=== PATIENT | female | born 1955 | race Caucasian/White ===

== ENCOUNTER 2022-02-03 07:24 | Emergency (ER) | payer SELFPAY ==
[2022-02-03 08:11] VITALS: BP 143/72; PULSE 61; TEMP 97.6; BMI 38.2
[2022-02-03] MEDS ORDERED: ACETAMINOPHEN 1000 MG/100 ML BAG IVPB ONE (08:47)
[2022-02-03] MEDS ORDERED: LIDOCAINE 5% TOPICAL PATCH TP ONE (08:48)
[2022-02-03] MEDS ORDERED: ACETAMINOPHEN INJECTION 100 ML IVPB ONE (08:56)
[2022-02-03] MEDS ORDERED: LIDOCAINE 5% TOPICAL PATCH ONE (08:56)
[2022-02-03 09:54] LABS: BASO % 0.5 % (0-2.0); HEMATOCRIT 41.5 % (32.4-45.2); HEMOGLOBIN 13.9 GM/dL (10.7-15.3); LYMPH % 28.3 % (8-40); MCH 29.1 pg (25.7-33.7); MCHC 33.6 g/dl (32.0-36.0); MEAN CELL VOLUME 86.8 fl (80-96); MEAN PLT VOLUME 7.7 fl (7.5-11.1); MONO % 5.4 % (3.8-10.2); NEUT % 62.8 % (42.8-82.8); PLATELET COUNT 229 10^3/uL (134-434); RBC 4.78 M/mm3 (3.60-5.2); RDW 13.4 % (11.6-15.6); WHITE BLOOD COUNT 7.7 K/mm3 (4.0-10.0)
[2022-02-03 09:57] LABS: ACTIVATED PTT 39.5 SECONDS (25.2-36.5); INR 1.06 (0.83-1.09); PROTHROMBIN TIME (PATIENT) 12.2 SEC (9.7-13.0)
[2022-02-03 09:59] LABS: CALCIUM 9.1 mg/dL (8.5-10.1)
[2022-02-03 10:00] LABS: ALBUMIN 3.8 g/dl (3.4-5.0)
[2022-02-03 10:03] LABS: CREATININE 0.5 mg/dL (0.55-1.3)
[2022-02-03 10:04] LABS: BILIRUBIN,TOTAL 0.7 mg/dL (0.2-1); TOT PROT 7.3 g/dl (6.4-8.2)
[2022-02-03 11:04] LABS: PH,URINE 5.5 (5.0-8.0); URINE APPEARANCE CLEAR; URINE BILIRUBIN NEGATIVE (NEGATIVE); URINE COLOR YELLOW; URINE GLUCOSE (UA) NEGATIVE (NEGATIVE); URINE KETONE NEGATIVE (NEGATIVE); URINE LEUK ESTERASE NEGATIVE (NEGATIVE); URINE NITRITE NEGATIVE (NEGATIVE); URINE PROTEIN NEGATIVE (NEGATIVE); URINE UROBILINOGEN 0.2 mg/dL (0.2-1.0)
[2022-02-03] MEDS ORDERED: LIDOCAINE PATCH REMOVAL MC ONE (22:00)
== END 2022-02-03 11:53 | disposition home or self-care (01) ==
LOC: JER 07:24
DX: R51.9 Headache, unspecified (principal); M79.10 Myalgia, unspecified site
CPT/HCPCS: 36415; 71046-TC-FY; 80053; 81003; 83735; 84484; 85025; 85610; 85730; 87086; 93005; 93010; 99284-25; C9803-CS; U0003; U0005